=== PATIENT | female | born 1960 | race Caucasian/White ===

== ENCOUNTER 2017-09-15 11:32 | Emergency (ER) | payer OTHER | END 2017-09-15 14:41 | disposition home or self-care (01) | LOC: FTE 11:32 | DX: J40 Bronchitis, not specified as acute or chronic (principal); J32.9 Chronic sinusitis, unspecified; I10 Essential (primary) hypertension | CPT/HCPCS: 71045; 93005; 99284-25 ==

== ENCOUNTER 2018-01-01 06:07 | Day surgery (SDC) | payer OTHER ==
[2018-01-01] MEDS ORDERED: MIDAZOLAM 1 MG/ML 2 ML INJ ×3 (08:50)
[2018-01-01] MEDS ORDERED: FENTAnyl 50 MCG/ML VIAL (08:51)
== END 2018-01-01 11:24 | disposition home or self-care (01) ==
LOC: GIL 06:07
DX: Z12.11 Encounter for screening for malignant neoplasm of colon (principal); K21.9 Gastro-esophageal reflux disease without esophagitis; K29.70 Gastritis, unspecified, without bleeding; K44.9 Diaphragmatic hernia without obstruction or gangrene; K64.8 Other hemorrhoids; I10 Essential (primary) hypertension
CPT/HCPCS: 43239; 88305